=== PATIENT | male | born 1955 ===

== ENCOUNTER 2024-04-27 15:33 | Inpatient (IN) | payer MEDICARE, OTHER ==
[~2024-04-27] VITALS: Ht 188 cm; Wt 102.4 kg
[~2024-04-27 15:33] MED LIST: ASPI81CH PO; ATOR40TA PO; CLOP75; METO25ER PO; NITR.4SL SL
[2024-04-27 16:09] LABS: BASOPHILS PERCENT AUTO 1 % (0-2); EOSINOPHILS ABSOLUTE AUTO 0.06 K/mm3 (0.00-0.68); EOSINOPHILS PERCENT AUTO 0 % (0-6); Hematocrit 45.5 % (37.0-53.0); Hemoglobin 15.4 g/dL (13.5-17.5); IMMATURE GRAN ABSOLUTE AUTO 0.05 K/mm3 (0.00-0.10); IMMATURE GRAN PERCENT AUTO 0 % (0-1); LYMPHOCYTES ABSOLUTE AUTO 2.27 K/mm3 (0.84-5.20); LYMPHOCYTES PERCENT AUTO 17 % (21-46); MONOCYTES PERCENT AUTO 8 % (4-13); Mean Corpuscular HGB 28.9 pg (26.0-34.0); Mean Corpuscular HGB Conc 33.8 g/dL (31.5-36.5); Mean Corpuscular Volume 85 fL (80-100); Mean Platelet Volume 11.6 fL (9.1-12.4); NEUTROPHILS ABSOLUTE AUTO 9.93 K/mm3 (1.96-9.15); NEUTROPHILS PERCENT AUTO 74 % (41-73); Platelet Count 268 K/mm3 (150-400); RDW Coefficient Variation 12.9 % (11.7-14.2); RDW Standard Deviation 40.2 fL (35.1-46.3); Red Blood Cell Count 5.33 M/mm3 (4.30-5.90); White Blood Cell Count 13.41 K/mm3 (4.00-11.30)
[2024-04-27 16:25] LABS: International Normalized Ratio 1.99; Prothrombin Time Results 20.2 Sec (9.7-11.5)
[2024-04-27 16:40] LABS: Albumin, Blood 3.8 g/dL (3.4-5.0); Albumin/Globulin Ratio 1.1 (0.8-1.8); Bilirubin, Total 1.3 mg/dL (0.1-1.0); Bun/Creatinine Ratio 12.4 (12.0-20.0); Calcium, Blood 9.1 mg/dL (8.5-10.1); Creatinine, Blood 1.45 mg/dL (0.60-1.20); Globulin, Blood 3.6 g/dL (2.2-4.0); Potassium, Blood 4.4 mmol/L (3.5-5.5); Total Protein, Blood 7.4 g/dL (6.4-8.2)
[2024-04-27] MEDS ORDERED: Aspirin 81 MG Chew PO ONE (21:30)
[2024-04-27] MEDS ORDERED: Nitroglycerin 0.4 MG SUBL SL ONE (21:35)
[2024-04-27] MEDS ORDERED: JANTOVEN4 M2 PO (21:47)
[2024-04-27] MEDS ORDERED: Nitroglycerin 0.4 MG SUBL SL PRN ×2 (22:45→22:55)
[2024-04-27] MEDS ORDERED: FLU VACC TS2024-25(6MOS UP)/PF 45 MCG/0.5 ML SYRINGE IM SCH (22:50)
[2024-04-27] MEDS ORDERED: NS 1,000 ML IV SCH (23:00)
[2024-04-27] MEDS ORDERED: Atorvastatin 40 MG Tab PO SCH (23:26)
[2024-04-27 23:46] LABS: Anti-Xa UFH, PHA Monitoring <0.10 IU/mL
[2024-04-28] VITALS (9 sets, daily range): BP systolic 118–153; BP diastolic 66–83
[2024-04-28] MEDS ORDERED: Heparin Sodium,Porcine/0.5 NS 500 ML IV SCH (00:55)
[2024-04-28 01:15] LABS: CHOL/HDL RATIO 6.1; Cholesterol 184 mg/dL (50-200); HDL Cholesterol 30 mg/dL (>39); LDL/HDL RATIO 4.3; Low Density Lipoprotein Chol 128 mg/dL (0-110); Magnesium, Blood 2.1 mg/dL (1.6-2.4); Phosphorus, Blood 2.9 mg/dL (2.5-4.9); Triglycerides 131 mg/dL (30-160); Very Low Density Lipoprot Chol 26 mg/dL (6-32)
[2024-04-28 05:00] LABS: BASOPHILS ABSOLUTE AUTO 0.08 K/mm3 (0.00-0.23); BASOPHILS PERCENT AUTO 1 % (0-2); EOSINOPHILS ABSOLUTE AUTO 0.09 K/mm3 (0.00-0.68); EOSINOPHILS PERCENT AUTO 1 % (0-6); Hematocrit 41.3 % (37.0-53.0); Hemoglobin 13.7 g/dL (13.5-17.5); IMMATURE GRAN ABSOLUTE AUTO 0.04 K/mm3 (0.00-0.10); IMMATURE GRAN PERCENT AUTO 0 % (0-1); LYMPHOCYTES ABSOLUTE AUTO 2.57 K/mm3 (0.84-5.20); LYMPHOCYTES PERCENT AUTO 24 % (21-46); MONOCYTES PERCENT AUTO 9 % (4-13); Mean Corpuscular HGB 28.5 pg (26.0-34.0); Mean Corpuscular HGB Conc 33.2 g/dL (31.5-36.5); Mean Corpuscular Volume 86 fL (80-100); Mean Platelet Volume 11.8 fL (9.1-12.4); NEUTROPHILS ABSOLUTE AUTO 7.15 K/mm3 (1.96-9.15); NEUTROPHILS PERCENT AUTO 66 % (41-73); Platelet Count 223 K/mm3 (150-400); RDW Standard Deviation 40.8 fL (35.1-46.3); White Blood Cell Count 10.93 K/mm3 (4.00-11.30)
[2024-04-28 05:34] LABS: Albumin, Blood 3.3 g/dL (3.4-5.0); Bilirubin, Total 1.3 mg/dL (0.1-1.0); Bun/Creatinine Ratio 17.8 (12.0-20.0); Calcium, Blood 8.5 mg/dL (8.5-10.1); Creatinine, Blood 1.01 mg/dL (0.60-1.20); Globulin, Blood 3.2 g/dL (2.2-4.0); Potassium, Blood 4.1 mmol/L (3.5-5.5); Total Protein, Blood 6.5 g/dL (6.4-8.2)
[2024-04-28] MEDS ORDERED: Aspirin 81 MG Chew PO SCH ×2 (09:00)
[2024-04-28] MEDS ORDERED: Atorvastatin 40 MG Tab PO SCH (09:00)
[2024-04-28] MEDS ORDERED: Metoprolol Succinate 25 MG TABCR PO SCH (09:00)
[2024-04-28] MEDS ORDERED: Dose Adjust by Pharmacy XX STA ×2 (09:16→14:18)
--- NOTE | 2024-04-28 11:17 | NUR ---
ADMISSION: PT ARRIVED TO PCU 6 @1025 VIA GURNEY. PT ABLE TO TRANSFER IND TO HOSPITAL BED. ALERT AND ORIENTED X4, ABLE TO FOLLOW COMMANDS AND MAKE NEEDS KNOWN. BP STABLE, HR SB 50'S, AFEBRILE, SPO2 >96% ON ROOM AIR. RESPIRATIONS EVEN AND UNLABORED AT REST. PULSES STRONG AND EQUAL THROUGHOUT. ABD SOFT, NON TENDER, BOWEL SOUNDS +. PT DENIES CP/PRESSURE AT THIS TIME. HEPARIN GTT. SECURITY OPERATIONS ANALYST AT BEDSIDE, PLAN FOR ANGIOGRAM THIS AFTERNOON. PT REMAINS NPO. ECHO COMPLETED. AT BEDSIDE AND UPDATED ON PT PLAN OF CARE. CALL LIGHT IN REACH.
[2024-04-28] MEDS ORDERED: Ezetimibe 10 MG Tab PO SCH (11:30)
[2024-04-28] MEDS ORDERED: NS 1,000 ML IV ONE ×2 (13:52→14:47)
[2024-04-28] MEDS ORDERED: Heparin Sodium 1000 Units/ML 10ML MDV ONE (13:52)
[2024-04-28] MEDS ORDERED: NS 500 ML IV ONE (13:52)
[2024-04-28] MEDS ORDERED: NiCARdipine HCL 1,000 MCG/5 ML SYR ONE (13:53)
[2024-04-28] MEDS ORDERED: Nitroglycerin 2 MG/20 ML BTL ONE (13:53)
--- NOTE | 2024-04-28 14:39 | NUR ---
UPDATE: PT TO SWING SAW OPERATOR.
[2024-04-28] MEDS ORDERED: Midazolam HCl 1MG / ML 2ML Vial ONE (14:47)
[2024-04-28] MEDS ORDERED: FentaNYL Citrate 50 MCG/ML 2 ML Injection ONE (14:47)
[2024-04-28] MEDS ORDERED: NS 250 ML IV SCH (16:00)
--- NOTE | 2024-04-28 16:08 | NUR ---
UPDATE: PT BACK FROM TUGGER OPERATOR. TR BAND IN PLACE, 12MLS IN PLACE. VSS. PT NEEDING CABG. PT AND UPDATED.
--- NOTE | 2024-04-28 16:43 | NUR ---
SHIFT SUMMARY: PT ALERT AND ORIENTED X4, ABLE TO FOLLOW COMMANDS AND MAKE NEEDS KNOWN. STRENGTH EQUAL BILATERALLY. BP AND HR STABLE. DENIES CP/PRESSURE. AFEBRILE. SPO2 >98% ON ROOM AIR. RESPIRATIONS EVEN AND UNLABORED. ABD SOFT, NON TENDER, BOWEL SOUNDS +. PT POST ANGIOGRAM W/ R. RADIAL SITE. TR BAND IN PLACE, WILL START DEFLATING AT 1730. NO OOZING/BRUISING NOTED. HEPARIN REMAINS ON STANDBY, ORDERS TO RESTART AFTER TR BAND RECOVERED. PT AWAITING COBRA TRANSFER. IND TO AND FROM BATHROOM. BED IN LOW, CALL LIGHT IN REACH, WILL REPORT TO ONCOMING RN.
--- NOTE | 2024-04-28 19:34 | NUR ---
TR BAND 2ML AIR REMOVED @1927 0 ML AIR REMAIN. TR BAND TO REMAIN IN PLACE FOR 1 HOUR AND THE SITE WILL BE COVERED WITH TEGADERM DRESSING. PT VERBALIZES UNDERSTANDING OF RIGHT ARM RESTRICTIONS IN REGARDS TO PUSHING/PULLING/LIFTING.
--- NOTE | 2024-04-28 20:01 | NUR ---
HEPARIN RESTARTED AT PREVIOUS RATE, 2 RN VERIFIED. PHARMACY NOTIFIED OF RESTART.
[2024-04-29 02:22] LABS: BASOPHILS ABSOLUTE AUTO 0.09 K/mm3 (0.00-0.23); BASOPHILS PERCENT AUTO 1 % (0-2); EOSINOPHILS ABSOLUTE AUTO 0.11 K/mm3 (0.00-0.68); EOSINOPHILS PERCENT AUTO 1 % (0-6); Hematocrit 39.7 % (37.0-53.0); Hemoglobin 13.6 g/dL (13.5-17.5); IMMATURE GRAN ABSOLUTE AUTO 0.03 K/mm3 (0.00-0.10); IMMATURE GRAN PERCENT AUTO 0 % (0-1); LYMPHOCYTES ABSOLUTE AUTO 2.28 K/mm3 (0.84-5.20); LYMPHOCYTES PERCENT AUTO 26 % (21-46); MONOCYTES ABSOLUTE AUTO 0.81 K/mm3 (0.16-1.47); MONOCYTES PERCENT AUTO 9 % (4-13); Mean Corpuscular HGB 29.2 pg (26.0-34.0); Mean Corpuscular HGB Conc 34.3 g/dL (31.5-36.5); Mean Corpuscular Volume 85 fL (80-100); Mean Platelet Volume 11.6 fL (9.1-12.4); NEUTROPHILS ABSOLUTE AUTO 5.33 K/mm3 (1.96-9.15); NEUTROPHILS PERCENT AUTO 62 % (41-73); Platelet Count 170 K/mm3 (150-400); RDW Coefficient Variation 13.3 % (11.7-14.2); RDW Standard Deviation 41.3 fL (35.1-46.3); Red Blood Cell Count 4.65 M/mm3 (4.30-5.90); White Blood Cell Count 8.65 K/mm3 (4.00-11.30)
[2024-04-29 02:42] LABS: Bun/Creatinine Ratio 15.7 (12.0-20.0); Calcium, Blood 8.8 mg/dL (8.5-10.1); Creatinine, Blood 1.02 mg/dL (0.60-1.20)
[2024-04-29] MEDS ORDERED: Clarify Drug Order XX ONE (03:10)
[2024-04-29 04:45] VITALS: BP 134/69
--- NOTE | 2024-04-29 06:48 | NUR ---
RT RADIAL TR BAND RECOVERED WELL. NO S/S BLEEDING/HEMATOMA. HEPARIN DRIP CONTINUES TO INFUSE W/O PROBLEM. PT DID HAVE AN EPISODE OF SINUS TACH/SVT WHEN UP AND AMBULATING TO THE BR. PT REPORTS NO CP/SOB/DIZZINESS AT REST OR DURING EXERTION. PT REMAINS ON ROOM AIR, AOX4, INDEPENDENT. PT CONTINUES TO FOLLOW RT ARM RESTRICTIONS WELL. [facility] ACCEPTED PT AND NOW AWAITING BED.
[2024-04-29 07:45] VITALS: BP 132/61
[2024-04-29] MEDS ORDERED: Dose Adjust by Pharmacy XX STA (09:07)
[2024-04-29 09:30] VITALS: BP 132/61
[2024-04-29 09:35] VITALS: BP 132/61
--- NOTE | 2024-04-29 10:00 | NUR ---
TRANSFER NOTE: THIS RN ASSUMED CARE OF PT AT APPROX 0700. PT A/OX4, ABLE TO COMMUNICATE NEEDS W/ STAFF. VSS. HR 70-90'S, SINUS ON TELE. SBP 130'S, DENIES CHEST PAIN/PRESSURE. SPO2 >95% ON RA, RESPIRATIONS EVEN & UNLABORED. R RADIAL ANGIO SITE C/D/I W/ TEGADERM IN PLACE. NO BLEEDING, BRUISING, OR HEMATOMA THIS AM. HEPARIN GTT INFUSING AT 15 U/KG/HR PER EMAR, MANAGED BY PHARMACY. PT INDEPENDENT IN ROOM. PT TRANSFERRED AT APPROX 0945 VIA EMS TRANSPORT. SPOUSE AT BEDSIDE, ALL PT BELONGINGS SENT HOME W/ SPOUSE. AWAITING RETURN CALL FROM [facility] RN FOR REPORT.
--- NOTE | 2024-04-29 11:01 | NUR ---
REPORT TO SCOOBY FORTUNE AT [facility] AT THIS TIME.
== END 2024-04-29 10:00 | disposition short-term general hospital (02) | DRG 282 ==
LOC: ER 15:33 → PCU 22:23 → ERHOLD 22:23 → PCU 04-28 10:05
PROVIDERS: Family Medicine; Internal Medicine; Physician Assistant; ADMIT Internal Medicine
PROC: 4A023N7 Measurement of Cardiac Sampling and Pressure, Left Heart, Percutaneous Approach (ICD-10-PCS; principal; 2024-04-28)
PROC: B2111ZZ Fluoroscopy of Multiple Coronary Arteries using Low Osmolar Contrast (ICD-10-PCS; 2024-04-28)
DX: I21.4 Non-ST elevation (NSTEMI) myocardial infarction (principal); I25.10 Atherosclerotic heart disease of native coronary artery without angina pectoris; I10 Essential (primary) hypertension; I48.0 Paroxysmal atrial fibrillation; E78.2 Mixed hyperlipidemia; Z88.0 Allergy status to penicillin; Z95.5 Presence of coronary angioplasty implant and graft; Z98.41 Cataract extraction status, right eye; Z98.42 Cataract extraction status, left eye; Z87.891 Personal history of nicotine dependence; Z51.81 Encounter for therapeutic drug level monitoring; Z79.01 Long term (current) use of anticoagulants; Z79.02 Long term (current) use of antithrombotics/antiplatelets; Z79.82 Long term (current) use of aspirin; Z79.899 Other long term (current) drug therapy
CPT/HCPCS: 36415; 36416; 71046; 76937; 80048; 80053; 80061; 83036; 83735; 83880; 84100; 84443; 84484; 85025; 85520; 85610; 85730; 93005; 93010; 93454; 93880; 99152; 99153; 99285-25; A9270; C1769; C1894; C8929; J1644; J2250; J3010; J7030; J7050; Q9957; Q9967